=== PATIENT | female | born 1945 | race Caucasian/White ===

== ENCOUNTER 2016-11-14 12:00 | Inpatient (IN) | payer MEDICARE, OTHER ==
[~2016-11-14] VITALS: Ht 160 cm; Wt 87.5 kg
[2016-11-14] MEDS ORDERED: ASPIRIN 81 MG CHEW TAB ONE (12:35)
[2016-11-14] MEDS ORDERED: NITROGLYCERIN SL 0.4 MG TAB SL ONE (12:44)
[2016-11-14] MEDS ORDERED: NITROGLYCERIN 2% OINT 1 INCH PKT TOPICAL ONE (13:23)
[2016-11-14] MEDS ORDERED: ENOXAPARIN 100 MG/ML SYR SUBQ ONE (13:23)
[2016-11-14] MEDS ORDERED: ASPIRIN 81 MG CHEW TAB PO ONE (18:20)
[2016-11-14] MEDS ORDERED: ONDANSETRON 4 MG VIAL IV PRN (18:20)
[2016-11-14] MEDS ORDERED: MORPHINE 2 MG/ML SYR IV PRN (18:20)
[2016-11-14] MEDS ORDERED: DOCUSATE SOD 100 MG CAP PO PRN (18:20)
[2016-11-14] MEDS ORDERED: TRAMADOL 50 MG TAB PO PRN (18:20)
[2016-11-14] MEDS ORDERED: LORAZEPAM 0.5 MG TAB PO PRN (18:20)
[2016-11-14] MEDS ORDERED: SALINE FLUSH 10 ML FLUSH PRN (18:20)
[2016-11-14] MEDS ORDERED: NITROGLYCERIN 50 MG/250 ML IV PRN (18:20)
[2016-11-14] MEDS ORDERED: SODIUM CHLORIDE 0.9% FLUSH BAG 500 ML IV PRN (18:20)
[2016-11-14] MEDS ORDERED: ACETAMINOPHEN 325 MG TAB PO PRN (18:20)
[2016-11-14] MEDS ORDERED: NITROGLYCERIN SL 0.4 MG TAB SL PRN (18:20)
[2016-11-14] MEDS ORDERED: TEMAZEPAM 7.5 MG CAP PO PRN (18:20)
[2016-11-14 18:24] VITALS: BP_SYST 138; RESP 18; TEMP 98
[2016-11-14 18:26] VITALS: Ht 160 cm; Wt 87.5 kg
[2016-11-14 19:35] VITALS: BP_SYST 146; RESP 18; TEMP 97.7
[2016-11-14] MEDS: GABAPENTIN 600 MG TAB PO SCH (21:09)
[2016-11-14] MEDS: CALCIUM CARB 600 MG TAB PO SCH (21:09)
[2016-11-14] MEDS: PREDNISONE 10 MG TAB PO SCH (21:09)
[2016-11-14] MEDS: Hydrocodone/APAP 10/325 MG TAB PO SCH (21:09)
[2016-11-14] MEDS: SALINE FLUSH 10 ML FLUSH SCH (21:10)
[2016-11-14 23:07] VITALS: BP_SYST 146; RESP 16; TEMP 97.6
[2016-11-15] VITALS (7 sets, daily range): BP systolic 101–138; RESP 16–18; TEMP 97.6–98.5
[2016-11-15] MEDS: Hydrocodone/APAP 10/325 MG TAB PO SCH ×5 (05:45→22:43)
[2016-11-15] MEDS: PANTOPRAZOLE 40 MG TAB PO SCH ×2 (05:45→16:18)
[2016-11-15] MEDS ORDERED: ASPIRIN EC 81 MG TAB PO SCH (08:00)
[2016-11-15] MEDS ORDERED: Furosemide 40 MG TAB PO SCH (09:00)
[2016-11-15] MEDS ORDERED: KCL CR 10 MEQ TAB PO SCH (09:00)
[2016-11-15] MEDS: CALCIUM CARB 600 MG TAB PO SCH ×2 (09:11→21:14)
[2016-11-15] MEDS: PREDNISONE 10 MG TAB PO SCH ×3 (09:11→21:14)
[2016-11-15] MEDS: GABAPENTIN 600 MG TAB PO SCH ×3 (09:11→21:14)
[2016-11-15] MEDS: SALINE FLUSH 10 ML FLUSH SCH ×2 (09:12→21:14)
[2016-11-15] MEDS ORDERED: DEXTROSE 50% SYRINGE 50 ML IV PRN (22:15)
[2016-11-15] MEDS ORDERED: GLUCAGON 1 MG VIAL IM PRN (22:15)
[2016-11-15] MEDS: PRAVASTATIN 40 MG TAB PO SCH (22:42)
[2016-11-16 03:50] VITALS: BP_SYST 121; RESP 16; TEMP 98
[2016-11-16] MEDS: Hydrocodone/APAP 10/325 MG TAB PO SCH ×5 (05:02→22:27)
[2016-11-16] MEDS: PANTOPRAZOLE 40 MG TAB PO SCH ×2 (06:24→16:37)
[2016-11-16 07:50] VITALS: BP_SYST 124; RESP 18; TEMP 97.6
[2016-11-16] MEDS: CALCIUM CARB 600 MG TAB PO SCH ×2 (08:32→20:48)
[2016-11-16] MEDS: PREDNISONE 10 MG TAB PO SCH ×2 (08:32→20:48)
[2016-11-16] MEDS: GABAPENTIN 600 MG TAB PO SCH ×3 (08:32→20:47)
[2016-11-16] MEDS: SALINE FLUSH 10 ML FLUSH SCH ×2 (08:33→20:47)
[2016-11-16] MEDS ORDERED: Furosemide 20 MG TAB PO SCH (09:00)
[2016-11-16] MEDS: SITAGLIPTIN 25 MG TAB PO SCH (11:11)
[2016-11-16 11:49] VITALS: BP_SYST 112; RESP 18; TEMP 97.6
[2016-11-16 15:07] VITALS: BP_SYST 132; RESP 18; TEMP 97.1
[2016-11-16 19:34] VITALS: BP_SYST 116; RESP 18; TEMP 97.4
[2016-11-16] MEDS ORDERED: MISSING DOSE XX ONE ×2 (20:10→20:30)
[2016-11-16] MEDS: PRAVASTATIN 40 MG TAB PO SCH (20:47)
[2016-11-16 22:52] VITALS: BP_SYST 128; RESP 18; TEMP 97.3
[2016-11-17 04:34] VITALS: BP_SYST 122; RESP 18; TEMP 96.6
[2016-11-17] MEDS: PANTOPRAZOLE 40 MG TAB PO SCH ×2 (06:20→16:41)
[2016-11-17] MEDS: Hydrocodone/APAP 10/325 MG TAB PO SCH ×5 (06:21→22:52)
[2016-11-17 07:00] VITALS: BP_SYST 140; RESP 18; TEMP 97.3
[2016-11-17] MEDS: SITAGLIPTIN 25 MG TAB PO SCH (08:00)
[2016-11-17] MEDS: CALCIUM CARB 600 MG TAB PO SCH ×2 (08:00→20:36)
[2016-11-17] MEDS: PREDNISONE 10 MG TAB PO SCH (08:00)
[2016-11-17] MEDS: SALINE FLUSH 10 ML FLUSH SCH ×3 (08:00→20:36)
[2016-11-17] MEDS: GABAPENTIN 600 MG TAB PO SCH ×3 (08:00→20:36)
[2016-11-17 11:05] VITALS: BP_SYST 120; RESP 18; TEMP 98.1
[2016-11-17 15:00] VITALS: BP_SYST 132; RESP 16; TEMP 96.8
[2016-11-17] MEDS ORDERED: LORAZEPAM 0.5 MG TAB PO PRN (17:20)
[2016-11-17] MEDS ORDERED: ENOXAPARIN 100 MG/ML SYR SUBQ ONE (17:20)
[2016-11-17] MEDS ORDERED: SALINE FLUSH 10 ML FLUSH PRN (17:20)
[2016-11-17 19:21] VITALS: BP_SYST 118; RESP 18; TEMP 98
[2016-11-17] MEDS: PREDNISONE 5 MG TAB PO SCH (20:36)
[2016-11-17] MEDS: PRAVASTATIN 40 MG TAB PO SCH (20:36)
[2016-11-17] MEDS: SODIUM CHLORIDE 0.9% 1,000 ML IV SCH (20:38)
[2016-11-17] MEDS ORDERED: TEMAZEPAM 7.5 MG CAP PO PRN (21:00)
[2016-11-17] MEDS: MUPIROCIN 2% CR 15 GM TOPICAL SCH (21:00)
[2016-11-17] MEDS ORDERED: TEMAZEPAM 15 MG CAP PO PRN (21:00)
[2016-11-17] MEDS ORDERED: ROSUVASTATIN 20 MG TAB PO SCH (21:00)
[2016-11-17 23:07] VITALS: BP_SYST 112; RESP 18; TEMP 97.7
[2016-11-18] VITALS (8 sets, daily range): BP systolic 102–132; RESP 18; TEMP 96.3–97.9
[2016-11-18] MEDS ORDERED: SODIUM CHLORIDE 0.9% FLUSH BAG 500 ML IV SCH (06:00)
[2016-11-18] MEDS ORDERED: DIAZEPAM 5 MG TAB PO ONE (06:00)
[2016-11-18] MEDS ORDERED: DEXTROSE 5% SALINE 0.45% 1,000 ML IV ONE (06:00)
[2016-11-18] MEDS ORDERED: DIPHENHYDRAMINE 25 MG CAP PO ONE (06:00)
[2016-11-18] MEDS: Hydrocodone/APAP 10/325 MG TAB PO SCH ×3 (06:30→14:00)
[2016-11-18] MEDS: PANTOPRAZOLE 40 MG TAB PO SCH ×2 (06:30→16:45)
[2016-11-18] MEDS: SODIUM CHLORIDE 0.9% 1,000 ML IV SCH (06:49)
[2016-11-18] MEDS: SALINE FLUSH 10 ML FLUSH SCH ×2 (08:00→08:12)
[2016-11-18] MEDS: CALCIUM CARB 600 MG TAB PO SCH (08:12)
[2016-11-18] MEDS: PREDNISONE 5 MG TAB PO SCH (08:12)
[2016-11-18] MEDS: GABAPENTIN 600 MG TAB PO SCH ×2 (08:12→16:45)
[2016-11-18] MEDS: SITAGLIPTIN 25 MG TAB PO SCH (08:13)
[2016-11-18] MEDS: MUPIROCIN 2% CR 15 GM TOPICAL SCH (10:09)
[2016-11-18] MEDS ORDERED: DIAZEPAM 5 MG TAB ONE (12:43)
[2016-11-18] MEDS ORDERED: MIDAZOLAM 2 MG/2 ML INJ IV PRN (14:00)
[2016-11-18] MEDS ORDERED: MORPHINE 2 MG/ML SYR IV ONE (14:00)
[2016-11-18] MEDS ORDERED: MIDAZOLAM 2 MG/2 ML INJ IV ONE (14:00)
[2016-11-18] MEDS ORDERED: LIDOCAINE 2% 20 ML SUBQ ONE (14:00)
[2016-11-18] MEDS ORDERED: SALINE FLUSH 10 ML FLUSH PRN (14:00)
[2016-11-18] MEDS ORDERED: DEXTROSE 5% SALINE 0.45% 1,000 ML IV SCH (14:00)
[2016-11-18] MEDS ORDERED: ONDANSETRON 4 MG VIAL IV PRN (14:00)
[2016-11-18] MEDS ORDERED: ATROPINE 1 MG/10 ML SYRINGE IV PRN (14:00)
[2016-11-18] MEDS ORDERED: SALINE FLUSH 10 ML FLUSH SCH (20:00)
[2016-11-18] MEDS ORDERED: MIDAZOLAM 2 MG/2 ML INJ ONE (20:33)
[2016-11-18] MEDS ORDERED: LIDOCAINE 2% 20 ML ONE (20:33)
[2016-11-19] MEDS ORDERED: SODIUM CHLORIDE 0.9% FLUSH BAG 500 ML IV SCH (06:00)
== END 2016-11-18 19:55 | disposition home or self-care (01) | DRG 287 ==
LOC: CANRESERV → ENRESERVDT → ENRESERVTM → ER 12:00 → EMR 15:31 → PCU 18:22 → 4THE 11-15 01:27 → ENPENDDIS 11-15 16:58 → OBSVTOIN 11-15 16:58
PROVIDERS: ADMIT Internal Medicine Cardiovascular Disease; ATTEND Internal Medicine Cardiovascular Disease
PROC: 4A023N7 Measurement of Cardiac Sampling and Pressure, Left Heart, Percutaneous Approach (ICD-10-PCS; principal; 2016-11-18)
PROC: B2111ZZ Fluoroscopy of Multiple Coronary Arteries using Low Osmolar Contrast (ICD-10-PCS; 2016-11-18)
PROC: B2151ZZ Fluoroscopy of Left Heart using Low Osmolar Contrast (ICD-10-PCS; 2016-11-18)
DX: I25.110 Atherosclerotic heart disease of native coronary artery with unstable angina pectoris (principal); N17.9 Acute kidney failure, unspecified; D68.9 Coagulation defect, unspecified; E11.22 Type 2 diabetes mellitus with diabetic chronic kidney disease; E11.65 Type 2 diabetes mellitus with hyperglycemia; N18.3 Chronic kidney disease, stage 3 (moderate); M06.9 Rheumatoid arthritis, unspecified; Z79.84 Long term (current) use of oral hypoglycemic drugs; Z79.01 Long term (current) use of anticoagulants; F41.9 Anxiety disorder, unspecified; F32.9 Major depressive disorder, single episode, unspecified; Z86.718 Personal history of other venous thrombosis and embolism; I12.9 Hypertensive chronic kidney disease with stage 1 through stage 4 chronic kidney disease, or unspecified chronic kidney disease; E78.5 Hyperlipidemia, unspecified; M48.07 Spinal stenosis, lumbosacral region
CPT/HCPCS: 71010; 76770; 80048; 80053; 80061; 82550; 82553; 82947; 83735; 83880; 84439; 84443; 84484; 85025; 85610; 85730; 93005; 93306; 93458; 93971; 96372; 99233

== ENCOUNTER 2016-11-23 09:32 | Emergency (ER) | payer MEDICARE, OTHER ==
[2016-11-23] MEDS ORDERED: ONDANSETRON 4 MG VIAL ONE (09:55)
[2016-11-23] MEDS ORDERED: OPTIRAY 350 100 ML VIAL HMH IV ONE (09:57)
[2016-11-23] MEDS ORDERED: CEFTRIAXONE 1 GM VIAL ONE (11:41)
[2016-11-23] MEDS ORDERED: SODIUM CHLORIDE 0.9% 100 ML IV ONE (11:41)
[2016-11-23] MEDS ORDERED: METOCLOPRAMIDE 10 MG/2 ML VIAL ONE (12:17)
[2016-11-23] MEDS ORDERED: ED METRONIDAZOLE IV 100 ML IV ONE (15:44)
[2016-11-23] MEDS ORDERED: LEVOFLOXACIN 500 MG TAB ONE (15:44)
== END 2016-11-23 17:04 | disposition home or self-care (01) ==
LOC: ER 09:56
DX: K57.32 Diverticulitis of large intestine without perforation or abscess without bleeding (principal); I48.91 Unspecified atrial fibrillation; E11.22 Type 2 diabetes mellitus with diabetic chronic kidney disease; I12.9 Hypertensive chronic kidney disease with stage 1 through stage 4 chronic kidney disease, or unspecified chronic kidney disease; N18.9 Chronic kidney disease, unspecified; Z86.718 Personal history of other venous thrombosis and embolism; Z79.84 Long term (current) use of oral hypoglycemic drugs; Z79.01 Long term (current) use of anticoagulants; Z79.899 Other long term (current) drug therapy
CPT/HCPCS: 36415; 74177; 80053; 81001; 83690; 85025; 85610; 85730; 87077; 87088; 87186; 96365; 96367; 96375; 99285; J0696; J2405; Q9967